=== PATIENT | male | born 1950 | race Hispanic/Latino ===

== ENCOUNTER 2019-04-03 23:07 | Observation (INO) | payer BC, MEDICARE ==
[~2019-04-03] VITALS: Ht 165.1 cm; Wt 74.8 kg
--- OUTSIDE RECORDS SUMMARY | 2019-04-03 23:10 | XMS REPORT | Clinical Summary ---
Author Author [facility] Address Unknown Phone Unavailable Care Team Providers Care Record Press Supervisor Name Role Phone Pablo White MD PCP Allergies No Known Allergies Medications End Date Status Medication Sig Dispensed Refills Start Date Active levothyroxine (SYNTHROID, TAKE 1 TABLET 0 LEVOXYL) 25 mcg tablet ONCE EVERY 7 MORNING RENAE Active JANUMET 50-500 mg per 1 tablet 7 Active lisinopril 0 (PRINIVIL,ZESTRIL) 2.5 mg 7 tablet Active FARXIGA 5 mg tablet TAKE 1 TABLET 5 BY MOUTH 7 EVERY DAY IN THE MORNING Active rosuvastatin (CRESTOR) 20 0 MG tablet 7 Active Problems No known active problems Family History Medical History Relation Name Comments Diabetes Father Relation Name Status Comments Father Social History Date Tobacco Use Types Packs/Day Years Used Former Smoker Smokeless Tobacco: Former User Alcohol Use Drinks/Week oz/Week Comments No Sex Assigned at Date Recorded Not on file Industry Job Start Date Occupation Not on file Not on file Not on file Travel End Travel History Travel Start No recent travel history available. Last Filed Vital Signs Not on file Plan of Treatment Health Maintenance Due Date Last Done Comments COLONOSCOPY SCREENING 2001 SHINGLES VACCINES (#1) 2001 65+ PNEUMOCOCCAL VACCINE 2016 (1 of 2 - PCV13) INFLUENZA VACCINE 04/26/2019 Results Not on fileafter 04/02/2018 Insurance Type Payer Benefit Subscriber ID Effective Phone Address Plan / Dates Group PPO BCBS BCBS xxxxxxxxxxxx 2008-P CHOICE resent PPO/TOM OLSEN PPO Advance Directives Patient has advance care planning documents on file. For more information, edwina costa contact: Madi Maxwell [address] [place] [address]
--- OUTSIDE RECORDS SUMMARY | 2019-04-03 23:10 | XMS REPORT | Clinical Summary ---
Author Author [facility] Address Unknown Phone Unavailable Care Team Providers Care Icing And Glaze Maker Name Role Phone Arnold Hill MD PCP Unavailable Allergies No Known Allergies Medications End Date Status Medication Sig Dispensed Refills Start Date Active levothyroxine (SYNTHROID, Take 25 mcg 0 LEVOTHROID) 25 MCG tablet by mouth Every morning on an empty stomach. Active dapagliflozin (FARXIGA) 5 Take 5 mg by 0 mg tablet mouth daily. Active sitaGLIPtin-metFORMIN Take 1 tablet 0 (JANUMET) 50-500 mg per by mouth 2 tablet (two) times daily with breakfast and dinner. Active ergocalciferol Take 50,000 0 (ERGOCALCIFEROL) 50,000 Units by unit capsule mouth once a week. Active lisinopril Take 2.5 mg 0 (PRINIVIL,ZESTRIL) 2.5 MG by mouth tablet daily. Active rosuvastatin (CRESTOR) 20 Take 20 mg by 0 MG tablet mouth daily. Active tamsulosin (FLOMAX) 0.4 Take 1 30 capsule 0 02/22/201 mg Cp24 24 hr capsule capsule (0.4 6 mg total) by mouth daily. Active Problems Problem Noted Date Left ureteral stone 03/24/2016 Renal stone 02/21/2016 Diabetes 09/14/2012 Hypothyroidism 08/30/2012 Vitamin D deficiency 08/30/2012 Dermatitis 08/30/2012 Diabetes mellitus Overview: type 2 controlled Hypercholesteremia Hyperlipidemia Impaired fasting glucose Immunizations Name Dates Previously Given Next Due Td 08/29/2007 Family History Relation Name Status Comments Brother 4 Alive Daughter 3 Alive Father Mother Alive Sister 3 Alive Social History Date Tobacco Use Types Packs/Day Years Used Never Smoker Smokeless Tobacco: Former Quit: 01/29/2012 User Alcohol Use Drinks/Week oz/Week Comments No Sex Assigned at Date Recorded Not on file Industry Job Start Date Occupation Not on file Not on file Not on file Travel End Travel History Travel Start No recent travel history available. Last Filed Vital Signs Not on file Plan of Treatment Health Maintenance Due Date Last Done Comments INFLUENZA VACCINE 06/26/2018 Implants Device Identifier Shelf Expiration Date Model / Serial / Lot Implanted Type Area Manufactur er 10/26/2017 185-614 / / [id number] Set Stent Injection 6x26cm 185-614 Stents-Per Left: Ureter BOSTON - [id number] ipheral SCI:ONCOLO Implanted: Qty: 1 on 02/22/2016 by BLU Mary, Laurent Cody MD Results Not on fileafter 04/02/2018 Insurance Payer Benefit Subscriber ID Type Phone Address Plan / Group BLUE CROSS/BLUE SHIELD BCBS PPO xxxxxxxxxxxx PPO [phone] [address] [place] [address] CHOICE
[2019-04-04] VITALS (8 sets, daily range): BP systolic 96–146; BP diastolic 52–78
--- NOTE | 2019-04-04 00:28 | NUR ---
PT GIVEN URINAL, INST ON NEED FOR UA, VERB UNDERSTANDING.
--- NOTE | 2019-04-04 00:35 | Diagnostic Imaging Report ---
Examination: CT BRAIN WO CONTRAST History:Dysarthria and syncope; possible stroke. Comparison studies:None Technique: Axial images were obtained from the skull base to the vertex. Coronal and sagittal images reconstructed from the axial data. Dose modulation, iterative reconstruction, and/or weight based adjustment of the mA/kV was utilized to reduce the radiation dose to as low as reasonably achievable. Intravenous contrast: None Findings: Scalp: No abnormalities. Bones: No fractures, blastic or lytic lesions. Brain sulci: Appropriate for age. Ventricles: Normal in size and configuration. No hydrocephalus. Extra-axial space: No abnormalities. Parenchyma: No masses, hemorrhage, or acute or chronic cortical based vascular insults.. Sellar/suprasellar region: No abnormalities. Craniocervical junction: Patent foramen magnum. No Chiari one malformation. Incidental findings: None. Impression: No intracranial abnormalities. Signed by: Dr. Anna Zhang M.D. on 04/04/2019 12:32 AM
[2019-04-04 00:45] LABS: BASOPHILS % 0.3 % (0.0-1.0); EOSINOPHILS # (AUTO) 0.3 (0.0-0.4); EOSINOPHILS % 2.7 % (0.0-6.0); HEMOGLOBIN 15.8 g/dL (14.0-18.0); LYMPHOCYTES # (AUTO) 4.7 (1.0-3.2); LYMPHOCYTES % 49.7 % (18.0-39.1); MEAN CORPUSCULAR HEMOGLOBIN 29.5 pg (28-32); MEAN CORPUSCULAR HGB CONC 32.9 g/dL (31-35); MEAN CORPUSCULAR VOLUME 89.6 fL (81-99); MONOCYTES # (AUTO) 0.5 (0.2-0.8); MONOCYTES % 4.7 % (4.4-11.3); PLATELET COUNT 237 x10e3/uL (140-360); RED BLOOD COUNT 5.36 x10e6/uL (4.3-5.7); RED CELL DISTRIBUTION WIDTH 12.7 % (11.7-14.4)
[2019-04-04 00:55] LABS: INR 0.9; PROTHROMBIN TIME 12.6 seconds (11.9-14.5)
[2019-04-04 00:56] LABS: PARTIAL THROMBOPLASTIN TIME 26.4 seconds (23.8-35.5)
[2019-04-04 01:12] LABS: ALANINE AMINOTRANSFERASE 35 IU/L (0-55); ALBUMIN 4.1 g/dL (3.5-5.0); ALBUMIN/GLOBULIN RATIO 1.5 (0.8-2.0); ALKALINE PHOSPHATASE 40 IU/L (40-150); ANION GAP 18.2 mmol/L (8-16); BLOOD UREA NITROGEN 14 mg/dL (7-26); BUN/CREATININE RATIO 11 (6-25); CALCIUM 9.9 mg/dL (8.4-10.2); CARBON DIOXIDE 22 mmol/L (22-29); CHLORIDE 102 mmol/L (98-107); CREATINE KINASE 82 IU/L (30-200); CREATININE, SERUM 1.23 mg/dL (0.72-1.25); EST GLOMERULAR FILTRATION RATE 59 ML/MIN (60-); GLUCOSE 211 mg/dL (74-118); POTASSIUM 3.2 mmol/L (3.5-5.1); SODIUM 139 mmol/L (136-145)
--- NOTE | 2019-04-04 01:30 | Diagnostic Imaging Report ---
EXAMINATION: CHEST SINGLE (PORTABLE) INDICATION: Weakness COMPARISON: None FINDINGS: AP view TUBES and LINES: None. LUNGS: Lungs are well inflated. Lungs are clear. There is mild prominence of the central pulmonary vasculature, consistent with pulmonary venous congestion. PLEURA: No pleural effusion or pneumothorax. HEART AND MEDIASTINUM: The cardiomediastinal silhouette is borderline enlarged.. BONES AND SOFT TISSUES: No acute osseous lesion. Soft tissues are unremarkable. Advanced degenerative changes of the right shoulder. UPPER ABDOMEN: No free air under the diaphragm. IMPRESSION: Borderline cardiomegaly and pulmonary vascular congestion. Signed by: Lamont Weber DO on 04/04/2019 1:27 AM
[2019-04-04] MEDS ORDERED: POTASSIUM CHLORIDE 20 MEQ TAB CR PO STA (01:48)
[2019-04-04 01:58] LABS: BILIRUBIN,URINE NEGATIVE (NEGATIVE); CLARITY,URINE CLEAR (CLEAR); COLOR,URINE YELLOW (YELLOW); KETONES,URINE NEGATIVE (NEGATIVE); LEUKOCYTE ESTERASE ,URINE NEGATIVE (NEGATIVE); NITRITE,URINE NEGATIVE (NEGATIVE); PROTEIN,URINE DIPSTICK 1+ (NEGATIVE); URINE UROBILINOGEN 0.2 mg/dL (0.2 - 1)
[2019-04-04] MEDS ORDERED: SODIUM CHLORIDE FLUSH 10 ML SYR INJ PRN (02:00)
[2019-04-04] MEDS ORDERED: DEXTROSE 50% SYRINGE 50 ML IV PRN (02:00)
[2019-04-04] MEDS ORDERED: ONDANSETRON HCL INJ 2MG/ML 2ML 2 MG/ML VIAL IV PRN (02:00)
[2019-04-04 02:05] LABS: BACTERIA,URINE MODERATE /HPF; EPITHELIAL CELLS,URINE FEW /LPF; MUCUS,URINE MANY (RARE); RBC,URINE 21-50 /HPF (0-5)
--- OUTSIDE RECORDS SUMMARY | 2019-04-04 02:07 | XMS REPORT ---
Author Author [facility] Address Unknown Phone Unavailable Care Team Providers Care President [employer] Name Role Phone Jak SAUCEDO Unavailable Unavailable Problems This patient has no known problems. Allergies, Adverse Reactions, Alerts This patient has no known allergies or adverse reactions. Medications This patient has no known medications. Results Test Description Test Time Test Comments Text Results Atomic Results Result Comments CHEST SINGLE (PORTABLE) 2019-04-04 01:25:00 [place] [address] Patient Name: JOZEF MARTINEZ MR #: [id number] : 1950 Age/Sex: 68/M Req #: [id number] Adm Physician: Ordered by: TITI SAUCEDO MD Report #: [id number] Location: ER Room/Bed: Procedure: [id number] DX/CHEST SINGLE (PORTABLE) Exam Date: 04/03/19 Exam Time: 2359 REPORT STATUS: Signed EXAMINATION: CHEST SINGLE (PORTABLE) INDICATION: Weakness COMPARISON: None FINDINGS: AP view TUBES and LINES: None. LUNGS: Lungs are well inflated. Lungs are clear. There is mild prominence of the central pulmonary vasculature, consistent with pulmonary venous congestion. PLEURA: No pleural effusion or pneumothorax. HEART AND MEDIASTINUM: The cardiomediastinal silhouette is borderline enlarged.. BONES AND SOFT TISSUES: No acute osseous lesion. Soft tissues are unremarkable. Advanced degenerative changes of the right shoulder. UPPER ABDOMEN: No free air under the diaphragm. IMPRESSION: Borderline cardiomegaly and pulmonary vascular congestion. Signed by: Lamont Weber DO on 04/04/2019 1:27 AM Dictated By: LAMONT WEBER DO 6 Transcribed By: SHELLY on 04/04/19126 COPY TO: TITI SAUCEDO MD CT BRAIN WO 2019-04-04 00:30:00 [place] [address] Patient Name: JOZEF MARTINEZ MR #: [id number] : 1950 Age/Sex: 68/M Req #: [id number] Adm Physician: Ordered by: TITI SAUCEDO MD Report #: [id number] Location: ER Room/Bed: Procedure: [id number] CT/CT BRAIN WO Exam Date: 04/03/19 Exam Time: 2359 REPORT STATUS: Signed Examination: CT BRAIN WO CONTRAST History:Dysarthria and syncope; possible stroke. Comparison studies:None Technique: Axial images were obtained from the skull base to the vertex. Coronal and sagittal images reconstructed from the axial data. Dose modulation, iterative reconstruction, and/or weight based adjustment of the mA/kV was utilized to reduce the radiation dose to as low as reasonably achievable. Intravenous contrast: None Findings: Scalp: No abnormalities. Bones: No fractures, blastic or lytic lesions. Brain sulci: Appropriate for age. Ventricles: Normal in size and configuration. No hydrocephalus. Extra-axial space: No abnormalities. Parenchyma: No masses, hemorrhage, or acute or chronic cortical based vascular insults.. Sellar/suprasellar region: No abnormalities. Craniocervical junction: Patent foramen magnum. No Chiari one malformation. Incidental findings: None. Impression: No intracranial abnormalities. Signed by: Dr. Anna Zhang M.D. on 06/2019 12:32 AM Dictated By: ANNA ALBA MD Transcribed By: SHELLY on 04/04/1931 COPY TO: TITI SAUCEDO MD
--- OUTSIDE RECORDS SUMMARY | 2019-04-04 02:07 | XMS REPORT | Clinical Summary ---
Author Author [facility] Address Unknown Phone Unavailable Care Team Providers Care Decorating Machine Operator Name Role Phone Pablo White MD PCP Allergies No Known Allergies Medications End Date Status Medication Sig Dispensed Refills Start Date Active levothyroxine (SYNTHROID, TAKE 1 TABLET 0 LEVOXYL) 25 mcg tablet ONCE EVERY 7 MORNING RNEAE Active JANUMET 50-500 mg per 1 tablet [...] INFLUENZA VACCINE 04/26/2019 Results Not on fileafter 04/03/2018 Insurance Type Payer Benefit Subscriber ID Effective Phone Address Plan / Dates Group PPO BCBS BCBS xxxxxxxxxxxx 2008-P CHOICE resent PPO/TOM OLSEN PPO Advance Directives Patient has advance care planning documents on file. For more information, edwina costa contact: Madi Maxwell [address] [place] [address]
--- OUTSIDE RECORDS SUMMARY | 2019-04-04 02:07 | XMS REPORT | Clinical Summary ---
Author [facility] Address Unknown Phone Unavailable Care Team Providers Care Chief Inspector Name Role Phone Arnold Hill MD PCP [...] Area Manufactur er 10/26/2017 [id number] / / [id number] Set Stent Injection 6x26cm [id number] Stents-Per Left: Ureter [employer]OSTON - [id number] ipheral SCI:ONCOLO Implanted: Qty: 1 on 02/22/2016 by BLU Mary, Laurent Cody MD Results Not on fileafter 04/03/2018 Insurance Payer Benefit Subscriber ID Type Phone Address Plan / Group BLUE CROSS/BLUE SHIELD BCBS PPO xxxxxxxxxxxx PPO [phone] [address] [place] [address] CHOICE
[2019-04-04] MEDS ORDERED: SODIUM CHLORIDE 0.9% 1000ML 1,000 ML ONE (02:24)
[2019-04-04] MEDS ORDERED: CEFTRIAXONE SOD 1 GM/NS 50 ML 50 ML IV ONE (02:24)
[2019-04-04] MEDS ORDERED: CRESTOR20 MG PO (02:32)
[2019-04-04] MEDS ORDERED: LISINOPRIL2.5 MG PO (02:32)
[2019-04-04] MEDS ORDERED: LEVOTHYROXINE50 MCG PO (02:32)
[2019-04-04] MEDS ORDERED: METFORMIN HCL500 MG PO (02:32)
[2019-04-04] MEDS ORDERED: JANUVIA100 MG PO (02:32)
[2019-04-04] MEDS: SODIUM CHLORIDE 0.9% 1000ML 1,000 ML IV SCH ×2 (02:33→12:15)
[2019-04-04] MEDS: CEFTRIAXONE SOD 1 GM/NS 50 ML 50 ML IV SCH (02:33)
[2019-04-04] MEDS ORDERED: ACETAMINOPHEN 325 MG TAB PO PRN (06:15)
[2019-04-04] MEDS ORDERED: METOPROLOL TARTRATE INJ 1 MG/ML VIAL IV PRN (06:15)
--- NOTE | 2019-04-04 07:19 | NUR ---
patient endorsed to next shift for continuity of care
[2019-04-04] MEDS: INSULIN REGULAR, HUMAN 100 UNIT/1 ML 3ML VIAL SQ SCH ×4 (07:30→21:48)
[2019-04-04] MEDS: FAMOTIDINE 20 MG TAB PO SCH ×2 (08:31→16:20)
[2019-04-04] MEDS: SITAGLIPTIN 100 MG TAB PO SCH (08:34)
[2019-04-04] MEDS: LEVOTHYROXINE SODIUM 50 MCG TAB PO SCH (08:35)
[2019-04-04 08:39] LABS: CHOL/HDL RATIO 2.5 (3.9-4.7)
[2019-04-04] MEDS ORDERED: LISINOPRIL 2.5 MG TAB PO SCH (09:00)
[2019-04-04] MEDS ORDERED: METFORMIN HCL 500 MG TAB PO SCH (09:00)
[2019-04-04 09:05] LABS: CREATINE KINASE MB 1.7 ng/mL (0-5.0)
--- NOTE | 2019-04-04 10:16 | NUR ---
patient resting in bed, Alert with no distress, keep monitoring
--- NOTE | 2019-04-04 11:09 | Diagnostic Imaging Report ---
MRI BRAIN WO HISTORY: TIA COMPARISON: Head CT 04/04/2019 TECHNIQUE: Sagittal T2, axial T2, axial T1, axial T2/FLAIR, axial gradient echo (or susceptibility weighted), coronal T2/FLAIR, and axial diffusion weighted MR images of the brain were obtained without contrast. DISCUSSION: Scalp/bone marrow: Unremarkable. Brain sulci: Appropriate for patient's age. Ventricles: Normal in size and configuration. No hydrocephalus. Extra-axial spaces: No masses or fluid collections. Parenchyma: A few small T2/FLAIR hyperintense foci throughout the supratentorial white matter are likely chronic microvascular ischemic changes. Otherwise, no mass, hemorrhage, or acute vascular insults. Vessels: Normal flow voids in major arteries and veins. Sellar/Suprasellar region: No abnormalities. Craniocervical junction: No abnormalities. Incidental findings: None. IMPRESSION: 1. No acute intracranial abnormalities. 2. Minimal supratentorial chronic microvascular ischemic change. Signed by: Dr. Mainor Montanez M.D. on 04/04/2019 11:06 AM
--- NOTE | 2019-04-04 11:17 | NUR ---
ST NOTE: Attempted to see pt for SLE and BSE orders at 10:30, pt in MRI, will return later today. Spoke with family member re return status. Handoff to KIRT Dawkins
[2019-04-04] MEDS: ASPIRIN 81 MG CHEW TAB PO SCH (12:01)
[2019-04-04 17:29] LABS: CREATINE KINASE 69 IU/L (30-200)
--- NOTE | 2019-04-04 19:45 | NUR ---
Received patient from day nurse, patient stable, safety and fall precautions maintained as per hospital protocol.
[2019-04-04] MEDS ORDERED: CRESTOR 10MG PO SCH (21:00)
--- NOTE | 2019-04-04 23:21 | Consultation ---
DATE OF CONSULTATION: 04/04/2019 Neurology Consult Note HISTORY OF PRESENT ILLNESS: Mr. Frey is a 68-year-old right-hand dominant man with past medical history significant for hypertension, hyperlipidemia, and diabetes mellitus type 2, admitted to [facility] on April 04, 2019, with symptoms suspicious for transient ischemic attack. Late at night on April 03, 2019, the patient experienced the sudden onset of an abnormal sensation affecting the entire body. Mr. Frey reports he felt as though he was swollen over his entire body. He stood from bed and told his he did not feel well. As he took two steps backwards, the patient fell to the floor. He did not hit his head. There was no loss of consciousness. Mr. Frey was able to stand without assistance. Once he stood, his began to ask him questions. Mr. Frey responded and what he thought was his normal speech pattern, however, the patient's speech was reportedly dysarthric with possible expressive aphasia. Mr. Frey reports no other neurological symptoms associated with the speech disturbance. Specifically, he does not report a visual field cut or other disturbance, facial droop, hemiparesis, hemihypesthesia, poor balance, impairment of gait, dizziness, or confusion. The patient reports the symptoms persisted for approximately 10 minutes. However, the daughter who is at the bedside, reports the symptoms lasted longer than 10 minutes. Mr. Frey was brought to the emergency center at [facility] by family members for further evaluation of his symptoms. By the time he reached the emergency center, approximately 25 to 30 minutes after symptom onset, his speech disturbance had resolved. Upon arrival in the emergency center, the patient was afebrile with a blood pressure of 126/62 mmHg and a pulse of 98 beats per minute. The patient's neurological examination was documented as being nonfocal. A CT of the brain without contrast was performed while the patient was in the emergency center. This study did not reveal evidence of recent large territorial ischemia or hemorrhage. Mr. Frey was then admitted to [facility] under observation status for further evaluation and treatment of his symptoms. Mr. Frey does not report experiencing similar symptoms previously. He does not report taking aspirin, Plavix, or other anti-platelet or anticoagulant medication on a daily basis. REVIEW OF SYSTEMS: Diaphoresis, dysarthria, possible expressive aphasia. Otherwise, a 12-point review of systems is negative. PAST MEDICAL HISTORY: Hypertension, hyperlipidemia, diabetes mellitus type 2, thyroid disease, nephrolithiasis. PAST SURGICAL HISTORY: Ureteral stent placement. PAST HOSPITALIZATIONS: Surgeries/procedures as listed. FAMILY MEDICAL HISTORY: The patient's paternal and maternal grandparents are . Their medical histories are unknown. The patient's father is . He had diabetes mellitus and coronary artery disease with a myocardial infarction. The patient's mother is alive at 93 years of age. She does have a history of coronary artery disease. Mr. Frey has a brother with coronary artery disease status post myocardial infarction. One sister has dysphagia, the cause of which is unknown. SOCIAL HISTORY: Mr. Frey is . He works in one of the [employer] along the [place]. The patient does report a prior history of tobacco use, but quit smoking approximately 4 to 5 years ago. The patient endorses rare alcohol use. He does not report current or prior recreational drug use. HOME MEDICATIONS: Lisinopril 2.5 mg by mouth daily, rosuvastatin 20 mg by mouth daily, metformin 1000 mg by mouth twice daily, Januvia 100 mg by mouth daily, levothyroxine 50 mcg by mouth daily. HOSPITAL MEDICATIONS: Tylenol, aspirin, ceftriaxone, Pepcid, insulin sliding scale, levothyroxine, metoprolol, Zofran, rosuvastatin, Januvia. ALLERGIES: NO KNOWN DRUG ALLERGIES. NO KNOWN FOOD ALLERGIES. NO KNOWN ALLERGIES TO LATEX. NO KNOWN ALLERGIES TO IODINE OR OTHER CONTRAST MATERIALS. PHYSICAL EXAMINATION: VITAL SIGNS: Height 65 inches, weight 165 pounds, BMI 27.5 kg/m2. Blood pressure 116/62 mmHg, pulse 80 beats per minute, respiratory rate 17 breaths per minute, and oxygen saturation 96% on room air. GENERAL: The patient is awake and alert, does not appear distressed. Overweight. HEENT: Normocephalic, atraumatic. Pupils are equal, round, and reactive to light. Moist mucous membranes. NECK: Supple. No appreciable thyromegaly. No appreciable carotid bruits. CARDIOVASCULAR: S1, S2, regular rate and rhythm. No murmurs, rubs, or gallops. RESPIRATORY: Clear to auscultation bilaterally. No wheezes, rhonchi, or rales. EXTREMITIES: The skin is warm and dry. No clubbing, cyanosis, or edema. The posterior tibial and dorsalis pedis pulses are 2+ and symmetric. SKIN: No rashes or lesions. NEUROLOGIC: Memory/Attention: The patient is awake and alert, oriented to person, place, time, and situation. Cranial Nerves: Cranial nerve I - not tested. Cranial nerve II, III, IV, and - pupils are equal and round, reactive briskly to light (from 4 mm to 2 mm). Extraocular movements intact. No nystagmus. Cranial nerve V - sensation is intact to light touch and pinprick in the bilateral V1 through V3 distributions. Strength in the temporalis and masseter muscles are within normal limits. Cranial nerve VII - the face is symmetric as are all facial movements. Strength is within normal limits. Cranial nerve VIII - hearing is intact to finger rub bilaterally. Cranial nerve IX, X - the soft palate elevates equally and symmetrically. Cranial nerve XI - normal strength of the bilateral sternocleidomastoid and trapezius muscles. Cranial nerve XII - the tongue protrudes midline and moves symmetrically from [id number]. Strength: Bulk is normal. Strength is 5/5 in the bilateral deltoids, biceps, triceps, wrist flexors and extensors, finger flexors and extensors, intrinsic hand muscles, hip flexors, knee flexors and extensors, ankle dorsiflexion and plantar flexion, and intrinsic foot muscles. Tone is normal. DTRs: Deep tendon reflexes are 2+ and symmetric at the triceps, biceps, brachioradialis, patellas, and Achilles. Plantar responses are flexor bilaterally. Sensation: Sensation is intact to light touch and pinprick in both arms and both legs. Cerebellar: Cqgpmq-emgm-[id number] and heel-bullock movements are intact without dysmetria or other impairment. Gait: Deferred. Speech: Spontaneous speech is normal without appreciable dysarthria or aphasia. Repetition is intact. Involuntary movements: None. Pronator Drift: None. LABORATORY DATA: A comprehensive metabolic panel was significant for mild hypokalemia of 3.2, an anion gap of 18.2, mildly decreased estimated GFR of 59, and an elevated serum glucose of 211. The liver function panel was within normal limits. Cardiac enzymes are negative x3. Hemoglobin A1c 6.2. Total cholesterol 144, triglycerides 85, LDL cholesterol 70, HDL cholesterol 57. The CBC with differential and platelets is unremarkable. The coagulation profile is within normal limits. A urinalysis revealed 1+ protein, 21 to 50 red blood cells, 6 to 10 white blood cells, moderate urine bacteria, 11 to 15 hyaline casts, 1 to 5 coarse granular casts, and many urine mucus. A urine culture was collected on April 04, 2019, and is pending. DIAGNOSTIC STUDIES: Electrocardiogram 04/03/2019: Normal sinus rhythm at 92 beats per minute. Chest x-ray 04/03/2019: Borderline cardiomegaly and pulmonary vascular congestion. CT of the brain without contrast 04/03/2019: On my review, there is no evidence of recent or remote large territorial ischemia, hemorrhage, mass, or mass effect. Cerebral volumes are appropriate for age. There are no findings suggestive of chronic small vessel ischemic disease. Bilateral carotid artery ultrasound with Doppler 04/04/2019: The right internal carotid artery is not visualized in the mid and distal segments. There is mild atherosclerotic plaque at the left carotid bulb. There does not appear to be any hemodynamically significant stenosis in either carotid artery system. Flow is antegrade in the bilateral vertebral arteries. MRI of the brain without contrast 04/04/2019: On my review, there is no evidence of recent or remote large territorial ischemia, hemorrhage, mass, or mass effect. Cerebral volumes are appropriate for age. There are few scattered T2/FLAIR hyperintense foci throughout the supratentorial white matter compatible with mild chronic small- vessel ischemic disease. ASSESSMENT AND PLAN: Mr. Frey is a 68-year-old right-hand dominant man with multiple vascular risk factors admitted to [facility] on April 04, 2019, with a transient ischemic attack. At present, the patient's neurological examination is nonfocal. His laboratory data and other diagnostic studies have been reviewed and are documented above. RECOMMENDATIONS: Are as follows: 1. An echocardiogram will be ordered to complete stroke evaluation. 2. Treatment with aspirin 81 mg by mouth daily for stroke prophylaxis will be continued. 3. The patient's goal blood pressure is less than 140/90 mmHg at the time of discharge. The patient's blood pressures are at goal. Continue the patient's home antihypertensive medications. Monitor vital signs per unit protocol. 4. The patient's goal total cholesterol is less than 200 with an LDL of less than 70. Mr. Frey has met his cholesterol goals. Continue treatment with the patient's home medication of rosuvastatin 20 mg by mouth daily. 5. The patient's goal hemoglobin A1c is less than 7.0. The patient's hemoglobin A1c is at goal. Continue treatment with the patient's current oral hypoglycemics. Tight glycemic control is recommended while the patient is hospitalized. 6. Speech and Physical Therapy consultations will be deferred as the patient has no focal deficits. 7. GI prophylaxis with Pepcid 20 mg by mouth twice daily with meals. DVT prophylaxis with Lovenox 40 mg subcutaneously daily. 8. Defer treatment of the remaining medical comorbidities to the primary and other services following the patient. Thank you for this consultation. I will continue to follow the patient while he remains in the hospital. TIME SPENT: 50 minutes. Alma Ramsey MD CP/JANETT /[id number] MTDJt
[2019-04-05] VITALS: BP 120/74
[2019-04-05] MEDS: SODIUM CHLORIDE 0.9% 1000ML 1,000 ML IV SCH (00:15)
[2019-04-05] MEDS ORDERED: SODIUM BICARBONATE 8.4% SYRING 100 ML ONE (01:37)
[2019-04-05] MEDS: CEFTRIAXONE SOD 1 GM/NS 50 ML 50 ML IV SCH (02:32)
[2019-04-05 04:00] VITALS: BP 120/78
[2019-04-05 04:07] LABS: BASOPHILS % 0.6 % (0.0-1.0); EOSINOPHILS # (AUTO) 0.2 (0.0-0.4); HEMATOCRIT 39.1 % (38.2-49.6); LYMPHOCYTES % 20.5 % (18.0-39.1); MEAN CORPUSCULAR HGB CONC 33.2 g/dL (31-35); MEAN CORPUSCULAR VOLUME 90.3 fL (81-99); MONOCYTES # (AUTO) 0.4 (0.2-0.8); MONOCYTES % 7.9 % (4.4-11.3); NEUTROPHILS # (AUTO) 3.2 (2.1-6.9); NEUTROPHILS % 65.8 % (38.7-80.0); PLATELET COUNT 160 x10e3/uL (140-360); RED BLOOD COUNT 4.33 x10e6/uL (4.3-5.7)
[2019-04-05] MEDS ORDERED: ASPIRIN CHEW81 MG PO (05:49)
[2019-04-05 07:05] LABS: ALANINE AMINOTRANSFERASE 35 IU/L (0-55); ALBUMIN 3.6 g/dL (3.5-5.0); ALBUMIN/GLOBULIN RATIO 1.3 (0.8-2.0); ALKALINE PHOSPHATASE 36 IU/L (40-150); ANION GAP 14.1 mmol/L (8-16); BLOOD UREA NITROGEN 13 mg/dL (7-26); BUN/CREATININE RATIO 13 (6-25); CALCIUM 9.2 mg/dL (8.4-10.2); CARBON DIOXIDE 24 mmol/L (22-29); CHLORIDE 106 mmol/L (98-107); EST GLOMERULAR FILTRATION RATE > 60 ML/MIN (60-); GLUCOSE 130 mg/dL (74-118); POTASSIUM 4.1 mmol/L (3.5-5.1); SODIUM 140 mmol/L (136-145)
--- NOTE | 2019-04-05 07:05 | NUR ---
patient endorsed to next shift for continuity of care.
[2019-04-05] MEDS: INSULIN REGULAR, HUMAN 100 UNIT/1 ML 3ML VIAL SQ SCH ×2 (07:30→11:30)
[2019-04-05 07:51] VITALS: BP 105/59
[2019-04-05 08:10] VITALS: BP 105/59
[2019-04-05] MEDS: LEVOTHYROXINE SODIUM 50 MCG TAB PO SCH (09:00)
[2019-04-05] MEDS: ASPIRIN 81 MG CHEW TAB PO SCH (09:09)
[2019-04-05] MEDS: SITAGLIPTIN 100 MG TAB PO SCH (09:09)
[2019-04-05] MEDS: FAMOTIDINE 20 MG TAB PO SCH (09:09)
[2019-04-05 11:37] VITALS: BP 115/63
--- NOTE | 2019-04-05 12:30 | NUR ---
ECHO result read back to Carine RAINES, New order recvd that patient can be discharged
--- NOTE | 2019-04-05 13:14 | NUR ---
patient discharged home, AAOx3 with no distress or any pain, no dizzy, prescription given, iv canula removed with tip intact, no ss of infiltration, daughter at bed side taking him home, transported via wheelchair
[2019-04-05] MEDS ORDERED: ENOXAPARIN SOD INJ 40 MG/0.4 ML SYR SC SCH (17:00)
--- NOTE | 2019-04-06 02:45 | Discharge Summary ---
ADMISSION DIAGNOSES: Impaired speech, hypertension, hyperlipidemia, hypothyroidism, hypokalemia, urinary tract infection, type 2 diabetes. DISCHARGE DIAGNOSES: Impaired speech, hypertension, hyperlipidemia, hypothyroidism, hypokalemia, urinary tract infection, type 2 diabetes, rule out urinary tract infection and transient ischemic attack. HISTORY: The patient has a history of hypertension, hyperlipidemia, type 2 diabetes, and hypothyroidism. SURGICAL HISTORY: None. FAMILY HISTORY: The patient's father had diabetes. The patient's brother had a stroke. SOCIAL HISTORY: Noncontributory. The patient admits to quitting smoking in 2014. HOSPITAL COURSE: A 68-year-old male admitted for impaired speech and generalized weakness that started yesterday. The symptoms lasted about 10 minutes before spontaneously resolving. Nothing improves or worsens the symptoms. He denies dizziness, dysphagia, focal weakness, and syncope. On admission, the patient had a CT of the brain, which was negative. Chest x-ray that showed borderline cardiomegaly and pulmonary vascular congestion. MRI of the brain showed no acute cranial abnormalities. Bilateral carotid Doppler showed carotid disease without significant stenosis. EKG was normal sinus rhythm. Neurology was consulted, who diagnosed the patient with a TIA. The patient's cholesterol was at goal and his A1c was 7. So, the patient will be discharged home with home medicines plus aspirin. The patient will follow up with primary care in 1 to 2 weeks. The patient and daughter understand discharge instructions and agrees to plan. Vital signs stable, patient afebrile. Dictated by Carine Hodge NP MD JARETT Rea/JANETT /[id number]
== END 2019-04-05 13:08 | disposition home or self-care (01) ==
LOC: ER 23:07 → ERHOLD 04-04 02:03 → IMCU 04-04 03:44
PROVIDERS: ADMIT Internal Medicine; ATTEND Internal Medicine
DX: G45.9 Transient cerebral ischemic attack, unspecified (principal); I51.7 Cardiomegaly; E11.9 Type 2 diabetes mellitus without complications; E78.5 Hyperlipidemia, unspecified; E87.6 Hypokalemia; E03.9 Hypothyroidism, unspecified; I65.29 Occlusion and stenosis of unspecified carotid artery; Z87.891 Personal history of nicotine dependence
CPT/HCPCS: 36415 ×2; 70450; 70551; 71045; 80053 ×2; 80061; 81001; 82550; 82553; 82948 ×2; 83036; 84484; 85025 ×2; 85610; 85730; 87086; 92507; 92523; 92610; 93005; 93306; 93880; 97161; 99284; G0378 ×2; J0696 ×2; J7030

== ENCOUNTER 2024-08-08 14:09 | Emergency (ER) | payer BC, MEDICARE ==
[~2024-08-08] VITALS: Ht 165.1 cm; Wt 72.6 kg
[~2024-08-08 14:09] MED LIST: ASPIRIN CHEW81 MG PO; CRESTOR20 MG PO; JANUVIA100 MG PO; LEVOTHYROXINE50 MCG PO; LISINOPRIL2.5 MG PO; METFORMIN HCL500 MG PO
[2024-08-08 15:35] VITALS: PULSE 78; RESP 16; TEMP 98.6; O2SAT 98
[2024-08-08 16:07] LABS: BASOPHILS % 0.6 % (0.0-1.0); EOSINOPHILS # (AUTO) 0.1 (0.0-0.4); EOSINOPHILS % 1.7 % (0.0-6.0); HEMATOCRIT 44.8 % (38.2-49.6); HEMOGLOBIN 14.4 g/dL (14.0-18.0); LYMPHOCYTES # (AUTO) 2.2 (1.0-3.2); LYMPHOCYTES % 33.8 % (18.0-39.1); MEAN CORPUSCULAR HEMOGLOBIN 29.8 pg (28-32); MEAN CORPUSCULAR HGB CONC 32.1 g/dL (31-35); MEAN CORPUSCULAR VOLUME 92.6 fL (81-99); MONOCYTES # (AUTO) 0.5 (0.2-0.8); MONOCYTES % 7.2 % (4.4-11.3); NEUTROPHILS # (AUTO) 3.7 (2.1-6.9); NEUTROPHILS % 56.5 % (38.7-80.0); PLATELET COUNT 207 x10e3/uL (140-360); RED BLOOD COUNT 4.84 x10e6/uL (4.3-5.7); RED CELL DISTRIBUTION WIDTH 12.7 % (11.7-14.4)
[2024-08-08 16:19] LABS: ALBUMIN 4.1 g/dL (3.5-5.0); ALBUMIN/GLOBULIN RATIO 1.3 (0.8-2.0); ANION GAP 15.9 mmol/L (8-16); BILIRUBIN,TOTAL 0.4 mg/dL (0.2-1.2); CALCIUM 10.3 mg/dL (8.4-10.2); CREATININE, SERUM 1.01 mg/dL (0.72-1.25); POTASSIUM 3.9 mmol/L (3.5-5.1); TOTAL PROTEIN 7.2 g/dL (6.5-8.1)
[2024-08-08] MEDS ORDERED: IOPAMIDOL 370 MG/ML 100 ML INFUS..BTL INJ ONE (16:52)
[2024-08-08 17:11] LABS: BILIRUBIN,URINE NEGATIVE (NEGATIVE); CLARITY,URINE CLEAR (CLEAR); COLOR,URINE YELLOW (YELLOW); GLUCOSE, URINE NEGATIVE (NEGATIVE); KETONES,URINE NEGATIVE (NEGATIVE); LEUKOCYTE ESTERASE ,URINE NEGATIVE (NEGATIVE); NITRITE,URINE NEGATIVE (NEGATIVE); PH,URINE 5.5 (5 - 7); PROTEIN,URINE DIPSTICK NEGATIVE (NEGATIVE); URINE UROBILINOGEN 0.2 mg/dL (0.2 - 1)
[2024-08-08 17:15] LABS: BACTERIA,URINE RARE /HPF; RBC,URINE 0-5 /HPF (0-5); WBC,URINE (MAN) 0-5 /HPF (0-5)
[2024-08-08 17:16] LABS: EPITHELIAL CELLS,URINE FEW /LPF; TRANSITIONAL EPI CELLS,URINE FEW
[2024-08-08] MEDS ORDERED: DICYCLOMINE HCL20 MG PO (18:01)
== END 2024-08-08 18:33 | disposition home or self-care (01) ==
LOC: ER 16:30
DX: R10.32 Left lower quadrant pain (principal); N50.812 Left testicular pain; R11.0 Nausea; E11.65 Type 2 diabetes mellitus with hyperglycemia; I10 Essential (primary) hypertension; E78.5 Hyperlipidemia, unspecified; E03.9 Hypothyroidism, unspecified
CPT/HCPCS: 36415; 74177; 80053; 81001; 85025; 99284; Q9967